=== PATIENT | female | born 2000 | race Caucasian/White ===

== ENCOUNTER → 2021-04-01 19:53 | Outpatient (CLI) | payer OTHER, SELFPAY | PROVIDERS: Visit Provider Nurse Practitioner Family | DX: Z20.822 Contact with and (suspected) exposure to COVID-19 (principal); J02.9 Acute pharyngitis, unspecified | CPT/HCPCS: C9803; U0003; U0005 ==

== ENCOUNTER 2021-04-28 13:56 | Emergency (ER) | payer OTHER, SELFPAY ==
--- NOTE | 2021-04-28 14:11 | XR_ITS ---
FINAL REPORT CLINICAL HISTORY: fall, slipped on ice, fell onto left side of body. shielded. FINDINGS: LEFT SHOULDER 3 views demonstrate no acute fracture or dislocation. The joint spaces appear normal. The visualized bony structures are well aligned. No soft tissue abnormality is seen. IMPRESSION: No acute process. Reviewed, Interpreted and Dictated by Joe Morales III, MD Transcribed by Ruben Campbell Authenticated by Joe Morales III, MD on 04/28/2021 03:44:[address] [facility]
--- NOTE | 2021-04-28 14:11 | XR_ITS ---
FINAL REPORT CLINICAL HISTORY: fall, slipped on ice and fell onto left side of body. shielded. FINDINGS: CERVICAL SPINE Five views were obtained. There is no acute fracture. There is mild kyphosis centered at C4-C5. There is no malalignment. The disc spaces are maintained. IMPRESSION: No acute process. Reviewed, Interpreted and Dictated by Joe Morales III, MD Transcribed by Ruben Campbell Authenticated by Joe Morales III, MD on 04/28/2021 03:44:[address] [facility]
--- NOTE | 2021-04-28 14:11 | XR_ITS ---
FINAL REPORT CLINICAL HISTORY: fall, slipped on ice and fell onto left side of body. shielded. FINDINGS: LEFT ELBOW 3 views were obtained. The lateral view is rotated. There is no acute fracture or dislocation. The joint spaces are intact. There is no soft tissue abnormality. IMPRESSION: Rotated lateral view. No acute process. Reviewed, Interpreted and Dictated by Joe Morales III, MD Transcribed by Ruben Campbell Authenticated by Joe Morales III, MD on 04/28/2021 03:44:12 PM [facility]
--- NOTE | 2021-04-28 14:11 | XR_ITS ---
FINAL REPORT CLINICAL HISTORY: fall on ice, landed on left side of body. shielded. FINDINGS: 2 views of the left humerus were obtained. There is no acute fracture or dislocation. The joint spaces appear intact. There is a linear foreign body in the anterior upper arm. IMPRESSION: No acute process. Reviewed, Interpreted and Dictated by Joe Morales III, MD Transcribed by Ruben Campbell Authenticated by Joe Morales III, MD on 04/28/2021 03:44:05 PM [facility]
--- NOTE | 2021-04-28 14:26 | HMH.EDUTC ---
[facility] [place] Clinical Impression: Neck pain Fall Qualifiers: Encounter type: initial encounter Qualified Code(s): W19.XXXA - Unspecified fall, initial encounter Left shoulder pain Qualifiers: Chronicity: acute Qualified Code(s): M25.512 - Pain in left shoulder Thoracic back pain Qualifiers: Chronicity: acute Back pain laterality: midline Qualified Code(s): M54.6 - Pain in thoracic spine Disposition: Home, Self-Care Condition on Discharge: Good Instructions: DI for Neck Pain, DI for Shoulder Pain Additional Instructions: Rest the extremity, apply ice for 15 minutes as tolerated three or four times per day, Elevate the extremity as tolerated while you are resting. Take ibuprofen for pain. I sent in a prescription to your pharmacy. Follow up with Dr. Maki (orthopedics) for contiued problems. Sometimes there can be fractures that don't show up well on the first set of x-rays. So, you should follow up if you continue to have symptoms. I put in a referral but you need to call his office and schedule an appointment. Follow up with your regular doctor. GO TO THE ER FOR ANY WORSENING SYMPTOMS Go home and rest. It would be best if you rested tomorrow too. No heavy lifting. No twisting. The muscle relaxer (cyclobenzaprine--Flexeril) will make you drowsy, so don't drive or operate heavy machinery after taking it. GO TO THE ER FOR ANY WORSENING SYMPTOMS OR CONCERN, ESPECIALLY BOWEL OR BLADDER ISSUES, SADDLE AREA NUMBNESS, FEVER, ETC Prescriptions: Ibuprofen [Ibuprofen 600mg Tablet] 600 mg PO Q6HP PRN #30 tab PRN Reason: Mild Pain Transmission Status: Pending to [facility] Cyclobenzaprine HCl [Cyclobenzaprine 10mg Tab] 10 mg PO BIDP PRN #20 tab PRN Reason: Muscle Spasm Transmission Status: Pending to [facility] Referrals: Provider,MD Ishmael [Primary Care Provider] - Jamar Maki MD [Staff Physician] - Forms: Work/School Release Time of Disposition: 15:25 Medical Decision Making - Medical Records Medical records reviewed: No: I reviewed the patient's medical records. - Paolo Inquiry Pt receiving controlled substance: No Vital Signs: 04/28/21 14:32 Pulse Rate [Left] 91 H Respiratory Rate 16 Blood Pressure [Right Arm] 147/82 H Blood Pressure Mean [Right Arm] 103 02 Sat by Pulse Oximetry 100 Orders (Tests/Meds): ORDERS Category Date Time Status XR cervical spine 4V Stat Exams 04/28/21 14:11 Taken XR elbow LT min 3V Stat Exams 04/28/21 14:11 Taken XR humerus LT Stat Exams 04/28/21 14:11 Taken XR shoulder LT min 2V Stat Exams 04/28/21 14:11 Taken - Radiology Data #1 Image(s): C-Spine Image Reviewed: Yes I reviewed the patient's radiology image, Yes I have reviewed radiologist's interpretation Preliminary Findings: No Fracture Seen #2 Image(s): Shoulder Image Reviewed: Yes I reviewed the patient's radiology image, Yes I have reviewed radiologist's interpretation Preliminary Findings: No Fracture Seen #3 Image(s): Elbow Image Reviewed: Yes I reviewed the patient's radiology image, Yes I have reviewed radiologist's interpretation Preliminary Findings: No Fracture Seen [facility] [place] HPI - General Stated complaint: O/A 28 @ 1230, L shoulder pain Time Seen by Provider: 04/28/21 14:26 - History of Present Illness Provider Complaint: She states that she fell at around 1230 today. She came down on her left shoulder. She c/o left shoulder pain that radiates to her middle back and the base of her her posterior neck. - Related Data Home Medications Medication Instructions Recorded Confirmed etonogestrel 68 mg subdermal SUBDERMAL 02/24/21 04/14/21 implant Previous Rx's Medication Instructions Recorded amoxicillin 500 mg capsule 500 mg PO Q12H 10 Days #20 cap 04/01/21 metronidazole 375 mg capsule 500 mg PO BID #10 cap 04/14/21 Cyclobenzaprine HCl 10 mg PO BIDP PRN #20 tab 04/28/21 [Cyclobenzaprine 1
[2021-04-28 14:32] VITALS: BP 147/82; PULSE 91; RESP 16; O2SAT 100; BMI 42.7
[2021-04-28 15:35] VITALS: BP 147/82; PULSE 91; RESP 16; TEMP 36.6
== END 2021-04-28 15:37 | disposition home or self-care (01) ==
PROVIDERS: Emergency Provider Nurse Practitioner Family
DX: M54.2 Cervicalgia (principal); M25.512 Pain in left shoulder; M54.6 Pain in thoracic spine; W00.0XXA Fall on same level due to ice and snow, initial encounter; Y92.9 Unspecified place or not applicable
CPT/HCPCS: 72050; 73030; 73060; 73080; 99202; G0463

== ENCOUNTER 2021-06-18 18:20 | Emergency (ER) | payer OTHER, SELFPAY ==
--- NOTE | 2021-06-18 18:49 | HMH.EDUTC ---
[facility] [place] Disposition Clinical Impression: Viral syndrome Disposition: Home, Self-Care Condition on Discharge: Good Instructions: DI for Viral Syndrome Additional Instructions: Drink plenty of fluids. Take tylenol or ibuprofen for pain or fever. Take the medications as directed. Follow up with your regular doctor. GO TO THE ER FOR ANY WORSENING SYMPTOMS Prescriptions: Brompheniramine/Pseudoephed/Dm [Bromfed Dm Cough Syrup] 5 ml PO Q6HP PRN #240 ml PRN Reason: Cough Transmission Status: Pending to [facility] Ondansetron [Zofran 4mg ODT] 4 mg PO Q8HP PRN #20 tab PRN Reason: Nausea Transmission Status: Pending to [facility] Referrals: Provider,Referral, [Primary Care Provider] - Forms: Work/School Release Time of Disposition: 19:48 Medical Decision Making - Medical Records Medical records reviewed: No: I reviewed the patient's medical records. - Paolo Inquiry Pt receiving controlled substance: No Vital Signs: 06/18/21 18:51 Temperature 98.8 F Temperature Source Oral Pulse Rate [Right Radial] 100 H Respiratory Rate 14 Blood Pressure [Right Arm] 151/76 H Blood Pressure Mean [Right Arm] 101 Blood Pressure Source [Right Arm] Automatic Cuff Blood Pressure Position [Right Arm] Sitting 02 Sat by Pulse Oximetry 98 Oxygen Delivery Method Room Air - Lab Data Lab results reviewed: Yes: I reviewed the patient's lab results. [facility] [place] HPI - General Stated complaint: stomach and [place] Time Seen by Provider: 06/18/21 18:49 - History of Present Illness Provider Complaint: She states that she has felt bad since Tuesday (3 days). She has been having headaches, low grade fever, n/v/d, and a cough. She is feeling better, but today she has vomited X2 so she wanted to be rechecked. She needs a release to go back to work once she is better also. - Related Data Home Medications Medication Instructions Recorded Confirmed etonogestrel 68 mg subdermal SUBDERMAL 02/24/21 06/18/21 implant Previous Rx's Medication Instructions Recorded Cyclobenzaprine HCl 10 mg PO BIDP PRN #20 tab 04/28/21 [Cyclobenzaprine 10mg Tab] Ibuprofen [Ibuprofen 600mg 600 mg PO Q6HP PRN #30 tab 04/28/21 Tablet] Brompheniramine/Pseudoephed/Dm 5 ml PO Q6HP PRN #240 ml 06/18/21 [Bromfed Dm Cough Syrup] Ondansetron [Zofran 4mg ODT] 4 mg PO Q8HP PRN #20 tab 06/18/21 Allergies Allergy/AdvReac Type Severity Reaction Status Date / Time No Known Allergies Allergy Verified 06/18/21 13:59 [facility] History - Hepatitis A Screen Attestation statement:: This patient has been screened for Hepatitis A risk factors. Medical History: Denies:: Diabetes Mellitus Type 1, Diabetes Mellitus Type 2 Other Medical History: Reports: Other Laterality Cases: Bilateral: Tonsillectomy Other Surgeries: Yes: Appendectomy Amputation: No Fractures: Yes - Social History Smoking Status: Never smoker Alcohol Intake: never Substance Use Type: denies use Occupational Status: employed Housing: house Household Members: family Family Hx:: Cancer, Diabetes ROS Obtained: Yes All systems reviewed & no additional complaints - Constitutional Constitutional: Reports as per HPI - Eyes Eyes: Denies eye discharge - ENT Ears, Nose, Mouth, and Throat: Reports as per HPI - Cardiovascular Cardiovascular: Denies chest pain - Respiratory Respiratory: Denies chest congestion, Reports cough, Denies dyspnea, Denies stridor, Denies wheezing - Gastrointestinal Gastrointestingal: Reports: as per HPI Physical Exam - General General appearance: alert, in no apparent distress - Head Head exam: atraumatic, normocephalic, normal inspection - Eye Eye exam: Present: normal appearance, PERRL, EOMI - ENT ENT exam: Present: normal exam, normal oropharynx, mucous membranes moist, TM's normal bilaterally, normal external ear exam - Neck Neck exam: Present: normal inspection, full ROM, trachea midline
[2021-06-18 18:51] VITALS: BP 151/76; PULSE 100; RESP 14; TEMP 37.1; O2SAT 98; BMI 43.0
[2021-06-18 19:50] VITALS: BP 151/76; PULSE 100; RESP 14; TEMP 37.1; O2SAT 98
== END 2021-06-18 19:50 | disposition home or self-care (01) ==
PROVIDERS: Emergency Provider Nurse Practitioner Family
DX: B34.9 Viral infection, unspecified (principal)
CPT/HCPCS: 99212; G0463

== ENCOUNTER 2021-12-02 14:55 | Emergency (ER) | payer OTHER, SELFPAY ==
[2021-12-02 15:12] VITALS: BP 142/86; PULSE 98; RESP 16; TEMP 37.1; O2SAT 96; BMI 43.5
--- NOTE | 2021-12-02 15:15 | EXP.UTC ---
Discharge Plan Disposition Patient Disposition: Home, Self-Care Condition: Good Prescriptions Prescriptions: New amoxicillin [amoxicillin] 875 mg tablet 875 mg PO Q12H Qty: 20 0RF kepttkkzrpzpskf-ekommaxxu-OP [Bromfed DM] 2-30-10 mg/5 mL Syrup 5 ml PO Q6H PRN (Reason: Cough) Qty: 240 0RF prednisone 10 mg tablet 10 mg PO BID Qty: 8 0RF No Action Nexplanon 68 mg implant SUBDERMAL cyclobenzaprine 10 MG tablet 10 mg PO BIDP PRN (Reason: Muscle Spasm) Qty: 20 0RF ibuprofen 600 MG tablet 600 mg PO Q6HP PRN (Reason: Mild Pain) Qty: 30 0RF fsdaedzufpxhmbv-jinqfamco-HV 118 ML syrup 5 ml PO Q6HP PRN (Reason: Cough) Qty: 240 0RF ondansetron 4 MG tablet,disintegrating 4 mg PO Q8HP PRN (Reason: Nausea) Qty: 20 0RF Referrals Follow up/Referrals: Provider,Referral, MD [Primary Care Provider] - See instructions Activity Restrictions/Add. Instructions Additional Instructions/Restrictions: Drink plenty of fluids. Take tylenol or ibuprofen for pain or fever. Take the medications as directed. Follow up with your regular doctor. GO TO THE ER FOR ANY WORSENING SYMPTOMS Quarantine until you know the results of your covid-19 test. Notify your school or workplace of your results and follow their instructions regarding return to work/school. Clinical Impressions Clinical Impression: Pharyngitis Stand Alone Forms Stand Alone Forms: Work/School Release Instructions Patient Instructions: DI for Pharyngitis/Tonsillopharyngitis -- Adult, Preventing the Spread of Coronavirus Discharge Instructions Discharge ED Provider: Domingo Rodriguez [facility] General Stated complaint: sore throat Time Seen by Provider: 12/02/21 15:15 History of Present Illness Provider Complaint: She states that she has had a sore throat for the past 3 days. Related Data Home Medications Medication Instructions Recorded Confirmed etonogestrel 68 mg subdermal subdermal 02/24/21 06/18/21 implant (Nexplanon) Previous Rx's Medication Instructions Recorded cyclobenzaprine 10 mg tablet 10 mg PO BIDP PRN Muscle Spasm #20 04/28/21 tabs ibuprofen 600 mg tablet 600 mg PO Q6HP PRN Mild Pain #30 04/28/21 tabs prdzrrstkwbvber-flhgyypdzgzvxqz-GS 5 ml PO Q6HP PRN Cough #240 mL 06/18/21 2 mg-30 mg-10 mg/5 mL oral syrup ondansetron 4 mg disintegrating 4 mg PO Q8HP PRN Nausea #20 tabs 06/18/21 tablet amoxicillin 875 mg tablet 875 mg PO Q12H #20 tabs 12/02/21 qcurtcayvvnbtyv-owzssumxnxinawo-CZ 5 ml PO Q6H PRN Cough #240 mL 12/02/21 2 mg-30 mg-10 mg/5 mL oral syrup (Bromfed DM) prednisone 10 mg tablet 10 mg PO BID #8 tabs 12/02/21 Allergies Allergy/AdvReac Type Severity Reaction Status Date / Time No Known Allergies Allergy Verified 06/18/21 13:59 PFSH PFSH Social History Smoking Status: Never smoker alcohol intake: never substance use type: denies use current occupational status: employed Travel in the last 8 weeks: None household members: family housing: house ROS Obtained: Yes All systems reviewed & no additional complaints except as documented Constitutional Constitutional: Reports chills and Reports fever(s) Eyes Eyes: Denies eye discharge ENT Ears, Nose, Mouth, and Throat: Reports as per HPI Cardiovascular Cardiovascular: Denies chest pain Respiratory Respiratory: Denies chest congestion and Reports cough Gastrointestinal Gastrointestingal: Reports nausea; Denies abdominal pain, constipation, cramping, diarrhea or vomiting Musculoskeletal Musculoskeletal: Denies arthralgias Integumentary/Breasts Skin/Breast: Denies rash Neurologic Neurologic: Denies paresthesias Physical Exam General General appearance: alert and in no apparent distress Head Head exam: atraumatic, normocephalic and normal inspection Eye Eye exam: Present normal appearance, PERRL and EOMI ENT ENT exam: Present mucous mem
[2021-12-02 15:17] LABS: UTC Strep Screen (Rapid) Negative (Negative)
[2021-12-02 15:56] VITALS: BP 142/86; PULSE 98; RESP 16; TEMP 37.1
== END 2021-12-02 16:04 | disposition home or self-care (01) ==
PROVIDERS: Emergency Provider Nurse Practitioner Family
DX: J02.0 Streptococcal pharyngitis (principal)
CPT/HCPCS: 87880; 99212; C9803; G0463; U0003; U0005

== ENCOUNTER 2022-01-08 18:42 | Emergency (ER) | payer OTHER, SELFPAY ==
--- NOTE | 2022-01-08 18:49 | EXP.UTC ---
Discharge Plan Disposition Patient Disposition: Home, Self-Care Condition: Good Prescriptions Prescriptions: New prednisone [prednisone] 20 mg tablet 20 mg PO BID 5 Days Qty: 10 0RF pseudoephedrine HCl [12 Hour Decongestant] 120 mg Tablet Extended Release 120 mg PO Q12H Qty: 20 0RF cefdinir [cefdinir] 300 mg capsule 300 mg PO BID 10 Days Qty: 20 0RF No Action Nexplanon 68 mg implant SUBDERMAL amoxicillin [amoxicillin] 875 mg tablet 875 mg PO Q12H Qty: 20 0RF krgkknsymjbbcap-pfmdhxopf-FJ [Bromfed DM] 2-30-10 mg/5 mL Syrup 5 ml PO Q6H PRN (Reason: Cough) Qty: 240 0RF prednisone 10 mg tablet 10 mg PO BID Qty: 8 0RF cyclobenzaprine 10 MG tablet 10 mg PO BIDP PRN (Reason: Muscle Spasm) Qty: 20 0RF ibuprofen 600 MG tablet 600 mg PO Q6HP PRN (Reason: Mild Pain) Qty: 30 0RF wvulxruwjtnwlwo-egtwywdyu-PT 118 ML syrup 5 ml PO Q6HP PRN (Reason: Cough) Qty: 240 0RF ondansetron 4 MG tablet,disintegrating 4 mg PO Q8HP PRN (Reason: Nausea) Qty: 20 0RF Referrals Follow up/Referrals: Provider,Referral, MD [Primary Care Provider] - See instructions Clinical Impressions Clinical Impression: Otitis media Instructions Patient Instructions: DI for Otitis Media (Middle Ear Infection)-Child Discharge ED Provider: Pilar Craig [facility] [place] General Stated complaint: right ear ache, cough, edward Time Seen by Provider: 01/08/22 19:18 Description of Symptoms (Recalled from Triage Doc. by RN): Right ear pain, cough, congestion, sore throat. Has been feeling poorly for a month or so. Initially treated for strep. Has never really felt any better. History of Present Illness Provider Complaint: Right ear pain, cough, congestion, sore throat. Has been feeling poorly for a month or so. Initially treated for strep. Has never really felt any better. Onset (ago): month(s) (1) Relieving factors: none Exacerbating factors: none Associated symptoms: denies other symptoms Treatments prior to arrival: none Related Data Home Medications Medication Instructions Recorded Confirmed etonogestrel 68 mg subdermal subdermal 02/24/21 06/18/21 implant (Nexplanon) Previous Rx's Medication Instructions Recorded cyclobenzaprine 10 mg tablet 10 mg PO BIDP PRN Muscle Spasm #20 04/28/21 tabs ibuprofen 600 mg tablet 600 mg PO Q6HP PRN Mild Pain #30 04/28/21 tabs akimidjzmqucctp-ucoitcxbfvlpuhl-IE 5 ml PO Q6HP PRN Cough #240 mL 06/18/21 2 mg-30 mg-10 mg/5 mL oral syrup ondansetron 4 mg disintegrating 4 mg PO Q8HP PRN Nausea #20 tabs 06/18/21 tablet amoxicillin 875 mg tablet 875 mg PO Q12H #20 tabs 12/02/21 ryubnxuntsirnvv-pgyybzikllqliet-ZT 5 ml PO Q6H PRN Cough #240 mL 12/02/21 2 mg-30 mg-10 mg/5 mL oral syrup (Bromfed DM) prednisone 10 mg tablet 10 mg PO BID #8 tabs 12/02/21 cefdinir 300 mg capsule 300 mg PO BID 10 days #20 caps 01/08/22 prednisone 20 mg tablet 20 mg PO BID 5 days #10 tabs 01/08/22 pseudoephedrine HCl 120 mg 120 mg PO Q12H #20 tabs 01/08/22 tablet,extended release (12 Hour Decongestant ER) Allergies Allergy/AdvReac Type Severity Reaction Status Date / Time No Known Allergies Allergy Verified 06/18/21 13:59 PFSH PFSH Social History Smoking Status: Never smoker alcohol intake: never substance use type: denies use current occupational status: employed Travel in the last 8 weeks: None household members: family housing: house ROS Obtained: Yes All systems reviewed & no additional complaints except as documented Constitutional Constitutional: Denies fever(s) and Reports malaise ENT Ears, Nose, Mouth, and Throat: Reports otalgia, Reports nasal congestion, Reports sinus pain and Reports sore throat Respiratory Respiratory: Reports chest congestion and Reports cough Physical Exam General General appearance: alert and in no apparent distress Head Head exam: normoc
[2022-01-08 19:11] VITALS: BP 126/85; PULSE 91; RESP 18; TEMP 37.1; O2SAT 99; BMI 43.6
[2022-01-08 19:35] VITALS: BP 126/85; PULSE 91; RESP 18; TEMP 37.1; O2SAT 99
== END 2022-01-08 19:49 | disposition home or self-care (01) ==
PROVIDERS: Emergency Provider Physician Assistant
DX: H66.90 Otitis media, unspecified, unspecified ear (principal)
CPT/HCPCS: 99212; G0463

== ENCOUNTER 2022-12-17 10:55 | Emergency (ER) | payer BC, SELFPAY ==
[2022-12-17 11:15] VITALS: BP 141/90; PULSE 98; RESP 17; TEMP 37.1; O2SAT 99; BMI 42.0
--- NOTE | 2022-12-17 11:40 | EXP.UTC ---
Discharge Plan Disposition Patient Disposition: Home, Self-Care Condition: Good Prescriptions Prescriptions: No Action Nexplanon 68 mg implant 1 implant SUBDERMAL ONCE Referrals Follow up/Referrals: Provider,Referral, MD [Primary Care Provider] - See instructions Activity Restrictions/Add. Instructions Additional Instructions/Restrictions: *Monitor Temp, Over the counter Motrin or Tylenol as directed/as needed Tylenol every 4 hours and Motrin every 6 hours (as long as your family doctor has told you that you can take it) for fever or pain. and straight to ER if unable to lower temp less than 101.0 after medication given *Warm salt water gargles may help to soothe the throat *Throat Lozenges? *Warm fluids like tea with honey may help to soothe the throat? *Sleep elevated *Humidifier/Vaporizer *Flonase 2 sprays in each nostril daily but be aware that it may take 2-3 days before you notice improvement *Bromfed may cause drowsiness. Know how it effects you (your child) before driving, caring for small child, or sending your child to school. Not other antihistamines/allergy medications while taking bromfed Your throat swab was sent for culture. Those results are typically sent to your primary care. Be sure to follow up in 2-3 days with your family doctor/primary care physician if no improvement so they can review those result and treat if necessary. If you don?t have a primary care doctor, I recommend you get one but in the mean time, you will have to return to a walk in clinic Follow up IMMEDIATELY for new or worsening symptoms or no Noticeable improvement over the next 48-72 hours. 911 for difficulty breathing or swallowing You were tested for today for COVID19 your test result should be back in the next 24 hours, you may check your results on the [facility] Portal Clinical Impressions Clinical Impression: Viral syndrome Stand Alone Forms Stand Alone Forms: Work/School Release Instructions Patient Instructions: DI for COVID-19 (Suspected or Confirmed ) Discharge ED Provider: Mirna Spann [facility] HPI General Stated complaint: covid+, sore throat, congestion Mode of Arrival: Ambulatory Source of Information: Patient Limitations: No Limitations Time Seen by Provider: 12/17/22 11:40 Description of Symptoms (Recalled from Triage Doc. by RN): PATIENT REQUESTING COVID TEST D/T EXPOSURE. REPORTS A POSITIVE AT HOME COVID TEST HEENT Symptoms (Recalled from RN notes): No Resp Symptoms (Recalled from RN notes): No Skin Symptoms (Recalled from RN notes): No MS Symptoms (Recalled from RN notes): No Functional Status (Recalled from RN notes): WNL History of Present Illness Provider Complaint: Patient states that she was around several people earlier in the week that tested positive for COVID and now she is having symptoms and had a positive home test so she came in to get checked and tested for COVID Related Data Home Medications Medication Instructions Recorded Confirmed etonogestrel 68 mg subdermal 1 implant subdermal ONCE 02/24/21 12/17/22 implant (Nexplanon) Control Allergies Allergy/AdvReac Type Severity Reaction Status Date / Time No Known Allergies Allergy Verified 06/18/21 13:59 Worker's Comp Is this a Worker's Comp case?: No [facility] Disclaimer: The information contained in this section may have been updated after the patient was seen, as this information can be updated by other users. Social History Smoking Status: Never smoker alcohol intake: never substance use type: denies use current occupational status: employed Travel in the last 8 weeks: None household members: family housing: house ROS Obtained: Yes All systems reviewed & no additional complaints except as documented and Yes Systems reviewed as appropriate & no additional complaints except as documented Constit
[2022-12-17 11:53] VITALS: BP 141/90; PULSE 98; RESP 17; TEMP 37.1; O2SAT 99
== END 2022-12-17 11:55 | disposition home or self-care (01) ==
PROVIDERS: Emergency Provider Nurse Practitioner
DX: U07.1 COVID-19 (principal)
CPT/HCPCS: 87635; 99212; 99213; G0463

== ENCOUNTER 2023-04-28 17:38 | Emergency (ER) | payer BC, SELFPAY ==
[2023-04-28 18:30] VITALS: BP 131/81; PULSE 93; RESP 18; TEMP 37.5; O2SAT 99; BMI 44.5
[2023-04-28 18:31] LABS: UTC Influenza A Antigen Negative (Negative); UTC Influenza B Antigen Negative (Negative); UTC Strep Screen (Rapid) Negative (Negative)
--- NOTE | 2023-04-28 18:47 | ED_ITS ---
Discharge Plan Disposition Patient Disposition: Home, Self-Care Condition: Good Prescriptions Prescriptions: New amoxicillin 875 mg tablet 875 mg PO Q12H Qty: 20 0RF methylprednisolone [Medrol (Pradip)] 4 mg tablets,dose pack See Rx Instructions .Route .COMPLEX 6 Days Qty: 21 0RF Rx Instructions: taper pack; No Action Nexplanon 68 mg implant 1 implant SUBDERMAL ONCE Referrals Follow up/Referrals: Provider,Referral, MD [Primary Care Provider] - See instructions Activity Restrictions/Add. Instructions Additional Instructions/Restrictions: *Monitor Temp, Over the counter Motrin or Tylenol as directed/as needed Tylenol every 4 hours and Motrin every 6 hours (as long as your family doctor has told you that you can take it) for fever or pain. and straight to ER if unable to lower temp less than 101.0 after medication given *Warm salt water gargles may help to soothe the throat *Throat Lozenges? *Warm fluids like tea with honey may help to soothe the throat? *Sleep elevated *Humidifier/Vaporizer Take medication as prescribed Your throat swab was sent for culture. Those results are typically sent to your primary care. Be sure to follow up in 2-3 days with your family doctor/primary care physician if no improvement so they can review those result and treat if necessary. If you don?t have a primary care doctor, I recommend you get one but in the mean time, you will have to return to a walk in clinic Follow up IMMEDIATELY for new or worsening symptoms or no Noticeable improvement over the next 48-72 hours. 911 for difficulty breathing or swallowing Clinical Impressions Clinical Impression: Otitis media Qualifiers: Otitis media type: unspecified Laterality: bilateral Qualified Code(s): H66.93 - Otitis media, unspecified, bilateral Instructions Patient Instructions: Middle Ear Infection, Amoxicillin Discharge ED Provider: Mirna Spann [facility] [place] General Stated complaint: sore throat, cough, painful breathing, ear pain Mode of Arrival: Ambulatory Source of Information: Patient Limitations: No Limitations Time Seen by Provider: 04/28/23 18:47 Description of Symptoms (Recalled from Triage Doc. by RN): Pt's symptoms are sore throat, coughing, congestion, ear pain, and body aches. HEENT Symptoms (Recalled from RN notes): Yes Resp Symptoms (Recalled from RN notes): No Skin Symptoms (Recalled from RN notes): No MS Symptoms (Recalled from RN notes): No Functional Status (Recalled from RN notes): n/a History of Present Illness Provider Complaint: Patient states that she has been having bilateral ear pain, sore throat, nasal congestion, body aches, and cough States that her throat is killing her and hurts when she swallows she has pain shoot into her ears Related Data Home Medications Medication Instructions Recorded Confirmed etonogestrel 68 mg subdermal 1 implant subdermal ONCE 02/24/21 04/28/23 implant (Nexplanon) Control Previous Rx's Medication Instructions Recorded amoxicillin 875 mg tablet 875 mg PO Q12H #20 tabs 04/28/23 methylprednisolone 4 mg tablets in See Rx Instructions .Route 04/28/23 a dose pack (Medrol (Pradip)) .COMPLEX 6 days #21 tabs Allergies Allergy/AdvReac Type Severity Reaction Status Date / Time No Known Allergies Allergy Verified 04/28/23 18:44 Worker's Comp Is this a Worker's Comp case?: No [facility] Disclaimer: The information contained in this section may have been updated after the patient was seen, as this information can be updated by other users. Social History Smoking Status: Never smoker alcohol intake: never substance use type: denies use current occupational status: employed Travel in the last 8 weeks: None household members: family housing: house ROS Obtained: Yes All systems reviewed & no additional complaints except as documented and Yes Systems reviewed as appropriate & no additional complaints except as documented Constitutional Constitutional: Reports system reviewed and no additional complaints, except as documented, Reports as per HPI, Reports body ache and Reports headache(s) ENT Ears, Nose, Mouth, and Throat: Reports system reviewed and no additional complaints, except as documented, Reports as per HPI, Reports otalgia, Reports headache(s), Reports nasal congestion, Reports sinus pressure and Reports sore throat Cardiovascular Cardiovascular: Reports system reviewed and no additional complaints, except as documented and Reports as per HPI Respiratory Respiratory: Reports system reviewed and no additional complaints, except as documented, Reports as per HPI, Denies shortness of breath and Reports cough Gastrointestinal Gastrointestingal: Reports system reviewed and no additional complaints, except as documented and as per HPI Neurologic Neurologic: Reports headache(s) Physical Exam General General appearance: alert and in no apparent distress ENT ENT exam: Present mucous membranes moist Expanded ENT Exam TM/Canal exam: Bilateral TM: erythema and bulging Nose exam: Present sinus tenderness Throat exam: Present tonsillar erythema Respiratory Respiratory exam: Present normal lung sounds bilaterally; Absent respiratory distress or wheezes Cardiovascular Cardiovascular exam: Present regular rate, normal rhythm and normal heart sounds Neurological Exam Neurological exam: Present alert, oriented X3 and normal gait Medical Decision Making Paolo Inquiry Pt receiving controlled substance: No Paolo was queried for this patient: No Vital Signs: 04/28/23 18:30 Temperature 99.5 F Temperature Source Oral Pulse Rate [Right Radial] 93 H Respiratory Rate 18 Blood Pressure [Right Arm] 131/81 Blood Pressure Mean [Right Arm] 97 Blood Pressure Source [Right Arm] Automatic Cuff Blood Pressure Position [Right Arm] Sitting 02 Sat by Pulse Oximetry 99 Oxygen Delivery Method Room Air Lab Data Lab results reviewed: Yes I reviewed the patient's lab results. Lab Results 04/28/23 18:14: Influenza Type A Ag Negative, Influenza Type B Ag Negative, Strep Scn Rapid Clinic Negative Orders (Tests/Meds): ORDERS Category Date Time Status Strep Screen Confirmation Stat Micro 04/28/23 18:14 Received
[2023-04-28 19:05] VITALS: BP 131/81; PULSE 93; RESP 18; TEMP 37.5; O2SAT 99
== END 2023-04-28 19:05 | disposition home or self-care (01) ==
PROVIDERS: Emergency Provider Nurse Practitioner
DX: H66.93 Otitis media, unspecified, bilateral (principal); R07.0 Pain in throat; R09.81 Nasal congestion; R05.9 Cough, unspecified; M79.18 Myalgia, other site
CPT/HCPCS: 87804; 87880; 99212; 99214; G0463

== ENCOUNTER 2023-08-04 03:34 | Emergency (ER) | payer BC, SELFPAY ==
[2023-08-04 03:47] VITALS: BP 141/97; PULSE 107; RESP 16; TEMP 37.3; O2SAT 97; BMI 43.4
--- NOTE | 2023-08-04 03:48 | XR_ITS ---
FINAL REPORT CLINICAL HISTORY: nausea vomiting FINDINGS: A single portable view of the chest was obtained. The heart size and pulmonary vascularity are within normal limits. The mediastinum is within normal limits. No acute pulmonary abnormality is identified. The bony thorax is intact. IMPRESSION: No active cardiopulmonary disease. Reviewed, Interpreted and Dictated by Joe Morales III, MD Transcribed by Erinn Schaffer Authenticated and [facility]
[2023-08-04] MEDS: ONDANSETRON 4MG/2ML VIAL 4 MG IV ×2 (03:56→05:49)
[2023-08-04] MEDS: ACETAMINOPHEN 1,000MG/100ML VIAL 1000 MG IV (03:56)
[2023-08-04 03:57] LABS: Basophils # 0.1 K/mm3 (0-0.2); Basophils % 0.4 % (0.1-2.0); Eosinophils # 0.2 K/mm3 (0.0-0.4); Eosinophils % 1.3 % (0.1-12.0); Hematocrit 48.7 % (37.0-47.0); Lymphocytes # 1.1 K/mm3 (0.7-4.5); Mean Corpuscular HGB Conc 32.9 g/dL (31.8-35.4); Mean Corpuscular Hemoglobin 30.7 pg (27.0-31.2); Mean Corpuscular Volume 93.3 fl (81-99); Mean Platelet Volume 9.3 fl (7.4-10.4); Monocytes # 0.5 K/mm3 (0.1-1.0); Monocytes % 3.1 % (1.7-9.3); Neutrophils # 15.3 K/mm3 (1.8-7.8); Neutrophils % 89.1 % (37.0-80.0); Platelet Count 292 K/mm3 (142-424); Red Blood Count 5.22 M/mm3 (4.20-5.40); Red Cell Distribution Width 13.7 % (11.5-17.5); White Blood Count 17.2 K/mm3 (4.8-10.8)
[2023-08-04] MEDS: LACTATED RINGERS 1000ML 1,000 ML 999 ML IV (03:57)
--- NOTE | 2023-08-04 03:58 | HMH.EDGENADL ---
Discharge Plan Disposition Patient Disposition: Home, Self-Care Condition: Good Prescriptions Prescriptions: New ondansetron 4 mg tablet,disintegrating 4 mg PO Q6H PRN (Reason: nausea and vomiting) Qty: 14 0RF No Action Nexplanon 68 mg implant 1 implant SUBDERMAL ONCE amoxicillin 875 mg tablet 875 mg PO Q12H Qty: 20 0RF methylprednisolone [Medrol (Pradip)] 4 mg tablets,dose pack See Rx Instructions .Route .COMPLEX 6 Days Qty: 21 0RF Rx Instructions: taper pack; Referrals Follow up/Referrals: Provider,Referral, MD [Primary Care Provider] - See instructions Activity Restrictions/Add. Instructions Additional Instructions/Restrictions: You were evaluated in the ER. You are appropriate for discharge at this time. Take the prescribed Zofran as needed for nausea and vomiting, drink plenty of fluids. Make an appointment with your primary care physician for reevaluation in 2 to 3 days. Return to the ER with new, worsening, or otherwise concerning symptoms. Clinical Impressions Clinical Impression: Nausea, vomiting and diarrhea Stand Alone Forms Stand Alone Forms: Work/School Release Instructions Patient Instructions: DI for Diarrhea and Traveler's Diarrhea -- Adult, DI for Diarrhea and Traveler's Diarrhea -- Child, DI for Nausea -- Adult, DI for Nausea -- Child Discharge ED Provider: Gio Rush Adult HPI General Chief complaint: Nausea/Vomiting/Diarrhea Stated complaint: vomiting, diarrhea, sweating Time Seen by Provider: 08/04/23 03:46 Mode of Arrival: Family Vehicle Source of Information: Patient Limitations: No Limitations Description of Symptoms (Recalled from ER Triage Doc. by RN): 23 YO FEMALE PRESENTS FOLLOWING ACUTE ONSET OF DIARRHEA APPROX 7 HOURS AGO. hAS SINCE BEGAN VOMITING (AROUND 3.5 HOURS AGO). STATES LAST MEAL WAS YESTERDAY AT NOON ([employer]) AND ATE A FEW CHIPS YESTERDAY EVENING. pATIENT DENIES KNOWN SICK CONTACTS. STATES PAIN IS PRESENT PRIOR TO EACH VOMITING EPISODE. PSH: APPENDECTOMY, PMH: NO ISSUES. NO CURRENT MEDS. HAS NEXPLANON IMPLANTED IN LUE. History of Present Illness HPI narrative: Otherwise healthy 23-year-old female presents to the ER with concerns of acute onset diarrhea. Patient states this started approximately 7 hours ago. Today for lunch over 12 hours ago she ate [employer] burger, chicken nuggets, fries, later in the evening she ate chips, and shortly after that she had acute onset generalized abdominal pain followed by diarrhea. Since that time she began vomiting, approximately 3.5 hours ago. She states she has had episodes of sweating associated with her emesis. She is not having bloody or bilious emesis, diarrhea is nonbloody, nonmelanotic. Patient does have a history of appendectomy. She states she has mild generalized abdominal discomfort, nothing localizing at this time. She has had emesis in the ER since arrival. She denies dysuria or hematuria. No known sick contacts, ROS otherwise negative. Related Data Home Medications Medication Instructions Recorded Confirmed etonogestrel 68 mg subdermal 1 implant subdermal ONCE 02/24/21 04/28/23 implant (Nexplanon) Control Previous Rx's Medication Instructions Recorded amoxicillin 875 mg tablet 875 mg PO Q12H #20 tabs 04/28/23 methylprednisolone 4 mg tablets in See Rx Instructions .Route 04/28/23 a dose pack (Medrol (Pradip)) .COMPLEX 6 days #21 tabs ondansetron 4 mg disintegrating 4 mg PO Q6H PRN nausea and 08/04/23 tablet vomiting #14 tabs Allergies Allergy/AdvReac Type Severity Reaction Status Date / Time No Known Allergies Allergy Verified 04/28/23 18:44 [facility] Disclaimer: The information contained in this section may have been updated after the patient was seen, as this information can be updated by other users. Social History Smoking Status: Unknown if ever smoked alcohol intake: never substance use type: denies use current occupational status: employed Travel in the last 8 weeks: None household members: family housing: house ROS Obtained: Yes All systems reviewed & no additional complaints except as documented Constitutional Constitutional: Reports chills, Denies fever(s), Denies headache(s), Denies weakness and Reports other (Sweats) Eyes Eyes: Denies change in vision ENT Ears, Nose, Mouth, and Throat: Denies dizziness, Denies headache(s), Denies nasal congestion and Denies sore throat Cardiovascular Cardiovascular: Denies chest pain, Denies dyspnea and Denies leg edema Respiratory Respiratory: Denies cough and Denies dyspnea Gastrointestinal Gastrointestingal: Reports abdominal pain, diarrhea, nausea and vomiting; Denies constipation Genitourinary Female Genitourinary: Denies dysuria Musculoskeletal Musculoskeletal: Denies arthralgias, Denies myalgias, Denies numbness and Denies tingling Integumentary/Breasts Skin/Breast: Denies change in pigmentation Neurologic Neurologic: Denies dizziness, Denies headache(s), Denies numbness, Denies tingling and Denies weakness Physical Exam General General appearance: alert and in no apparent distress Head Head exam: atraumatic and normocephalic Eye Eye exam: Present PERRL and EOMI ENT ENT exam: Present mucous membranes moist Neck Neck exam: Present normal inspection and full ROM Chest Chest inspection: Present symmetric chest wall rise Respiratory Respiratory exam: Present normal lung sounds bilaterally; Absent respiratory distress, wheezes or stridor Cardiovascular Cardiovascular exam: Present regular rate and normal rhythm Abdominal Exam Abdominal exam: Present soft and tenderness (Mild diffuse); Absent distention, guarding or rebound Extremities Exam Extremities exam: Present full ROM Neurological Exam Neurological exam: Present alert and oriented X3; Absent motor sensory deficit Psychiatric Psychiatric exam: Present normal affect and normal mood Skin Skin exam: Present warm and dry Medical Decision Making Paolo Inquiry Pt receiving controlled substance: No Vital Signs: 08/04/23 03:47 Temperature 99.2 F Temperature Source Oral Pulse Rate [Right Brachial] 107 H Respiratory Rate 16 Blood Pressure [Right Arm] 141/97 H Blood Pressure Mean [Right Arm] 111 Blood Pressure Source [Right Arm] Automatic Cuff Blood Pressure Position [Right Arm] Sitting 02 Sat by Pulse Oximetry 97 Oxygen Delivery Method Room Air Lab Data Lab Results 08/04/23 03:50: WBC 17.2 H, RBC 5.22, Hgb 16.0, Hct 48.7 H, MCV 93.3, MCH 30.7, MCHC 32.9, RDW 13.7, Plt Count 292, MPV 9.3, Neut % (Auto) 89.1 H, Lymph % (Auto) 6.0 L, [place] % (Auto) 3.1, Eos % (Auto) 1.3, Baso % (Auto) 0.4, Neut # (Auto) 15.3 H, Lymph # (Auto) 1.1, [place] # (Auto) 0.5, Eos # (Auto) 0.2, Baso # (Auto) 0.1, Total Counted 100, Neutrophils % (Manual) 87 H, Lymphocytes % (Manual) 10, Monocytes % (Manual) 3, Platelet Estimate Normal, RBC Morphology Normal, Sodium 138, Potassium 4.3, Chloride 107, Carbon Dioxide 24, Anion Gap 11.3, BUN 13, Creatinine 0.70, Estimated Creat Clear 132, Estimated GFR 105, Est GFR ( Amer) 127, Glucose 126 H, Calcium 9.5, Total Bilirubin 0.7, AST 33, ALT 32, Alkaline Phosphatase 99, Troponin I < 0.01, Total Protein 7.8, Albumin 4.5, Globulin 3.3 H, Albumin/Globulin Ratio 1.4, Lipase 76, Serum HCG, Qual Negative 08/04/23 05:06: Urine Color Yellow, Urine Appearance Slightly cloudy, Urine pH 5.5, Ur Specific [place] >= 1.030, Urine Protein Negative, Urine Glucose (UA) Negative, Urine Ketones Negative, Urine Blood Negative, Urine Nitrate Negative, Urine Bilirubin Negative, Urine Urobilinogen 0.2, Ur Leukocyte Esterase Trace, Urine WBC 3-5, Urine Bacteria 2+, Urine Mucus Trace 08/04/23 05:15: Lactate 1.3 08/04/23 03:50 08/04/23 03:50 Orders (Tests/Meds): ED MEDICATIONS Discontinued Medications Generic Name Dose Route Start Last Admin Trade Name Tori PRN Reason Stop Dose Admin Acetaminophen 1,000 mg 08/04/23 03:47 08/04/23 03:56 Acetaminophen 1,000mg/100ml Vial IV 08/04/23 03:48 1,000 mg ONCE ONE Administration Lactated Ringer's 1,000 mls @ 999 mls/hr 08/04/23 03:47 08/04/23 03:57 Lactated Ringer's 1000 Ml Bag IV 08/04/23 04:47 999 mls/hr .Q1H1M ONE Administration Ketorolac Tromethamine 15 mg 08/04/23 05:34 Ketorolac 30mg/Ml Vial IV 08/04/23 05:35 ONCE ONE Ondansetron HCl 4 mg 08/04/23 03:47 08/04/23 03:56 Ondansetron 4mg/2ml Vial IV 08/04/23 03:48 4 mg ONCE ONE Administration ORDERS Category Date Time Status CXR --portable [XR chest portable] Stat Exams 08/04/23 03:48 Taken CBC w/Auto Diff [Complete Blood Count Auto Diff] Stat Lab 08/04/23 03:50 Completed CMP [Comprehensive Metabolic Panel] Stat Lab 08/04/23 03:50 Completed HCG Qualitative, Serum Stat Lab 08/04/23 03:50 Completed Lactic Acid Stat Lab 08/04/23 05:15 Completed Lipase Stat Lab 08/04/23 03:50 Completed Trop I [Troponin I] Stat Lab 08/04/23 03:50 Completed Troponin I Q3H Lab 08/04/23 07:00 Ordered Troponin I Q3H Lab 08/04/23 10:00 Ordered Urinalysis and Microscopic Stat Lab 08/04/23 05:06 Completed Urine Culture Stat Micro 08/04/23 05:06 Received ECG Request Stat Y 08/04/23 03:47 Ordered HEART Score History (anamnesis): Slightly suspicious ECG: Non-specific disturbance Age: <45 years Risk factors: No known risk factors Troponin: </= normal limit HEART Score: 1 Medical Decision Narrative: In summary, this 23year old female presents to the emergency department today with nausea, vomiting, diarrhea. On initial evaluation patient is hemodynamically stable, tachycardia that was present on arrival is resolved on my exam, she is afebrile, abdomen has diffuse mild tenderness, no rebound or guarding, nonfocal, nonacute abdomen, she appears well-hydrated. Differential diagnosis includes but is not limited to viral syndrome, food borne illness, electrolyte abnormality, dehydration, urinary tract infection, , also considered ACS though this is less likely given patient does not have any chest pain or known cardiac risk factors aside from being overweight. Based on these concerns, I ordered basic labs, cardiac workup, urinalysis. I considered CT scan however given patient is young and otherwise healthy and has nonfocal, nonlocalizing, nonacute abdominal exam at this time I do not believe it is necessary. ECG personally interpreted demonstrates normal sinus rhythm, rate 82, normal axis, normal RI and QTc, no STEMI. Patient received IV fluids, Zofran, IV acetaminophen for treatment. Labs personally reviewed demonstrate leukocytosis with WBC 17.2, left shift, no anemia, CMP with no actionable electrolyte abnormalities, no kidney or liver dysfunction, initial troponin undetectably low at less than 0.01, repeat troponin is not necessary given patient's duration of symptoms, hCG negative. UA negative for findings of infection, lactic normal at 1.3 XR personally interpreted demonstrates no acute intrathoracic abnormality, see radiology read for final interpretation. On reassessment, patient has had improvement of symptoms. She is having much less nausea and has been able to tolerate oral intake in the ER. She is appropriate for discharge at this time. Patient was given instructions on symptomatic management, follow up instructions, and return precautions for the emergency department. Patient indicated understanding and was discharged in stable condition. Critical Care Critical Care Time Critical Care Time: No
[2023-08-04 03:59] LABS: MANUAL DIFFERENTIAL MANUAL DIFFERENTIAL (MANUAL DIFF)
[2023-08-04 04:00] LABS: Chloride 107 mmol/L (98-107); Potassium 4.3 mmoL/L (3.5-5.1); Sodium 138 mmol/L (136-145)
[2023-08-04 04:03] LABS: Alanine Aminotransferase 32 U/L (12-78); Albumin Level 4.5 g/dl (3.5-5.0); Albumin/Globulin Ratio 1.4 (1.1-1.8); Alkaline Phosphatase 99 U/L (38-126); Anion Gap 11.3 mEq/L (5-15); Aspartate Amino Transferase 33 U/L (14-36); Bilirubin,Total 0.7 mg/dl (0.2-1.3); Blood Urea Nitrogen 13 mg/dl (7-17); Calcium 9.5 mg/dl (8.4-10.2); Carbon Dioxide 24 mmol/L (22.0-30.0); Creatinine Clearance Estimated 132 mL/min (50-200); Estimated Glomerular Filt Rate 105 ml/min (>60); GFR (African American) 127 ML/MIN (>60); Globulin 3.3 g/dL (1.3-3.2); Glucose 126 mg/dl (74-100); Lipase 76 U/L (23-300); Total Protein,Serum 7.8 g/dl (6.3-8.2)
[2023-08-04 04:07] LABS: Lymphocytes % 10 % (10-50); Monocytes % 3 % (2-9); Neutrophils % 87 % (42-76); Platelet Estimate Normal; RBC Morphology Normal; Total Cells Counted 100
[2023-08-04 04:09] LABS: HCG Qualitative, Serum Negative (Negative)
[2023-08-04 04:21] LABS: Troponin I < 0.01 ng/ml (0.00-0.034)
--- NOTE | 2023-08-04 04:51 | ECG_ITS ---
APPROVED REPORT Exam: Resting ECG HR:82 bpm ECG Measurements Heart Rate 82 AXES WA 138 P 32 QRSd 80 QRS 63 QT 365 T 12 QTc 404 Conclusion SINUS RHYTHM NORMAL ECG UNCONFIRMED REPORT Electronically signed by : RODERICK MORRISSEY, 08/06/2023 06:03:30
[2023-08-04 05:12] LABS: Appearance,Urine Slightly Cloudy (Clear); Bilirubin,Urine Negative (Negative); Blood, Urine Negative (Negative); Color,Urine YELLOW (Yellow); Glucose,Urine (UA) Negative (Negative); Ketones,Urine Negative (Negative); Leukocyte Esterase,Urine TRACE (Negative); Microscopic, Urine URINE MICROSCOPIC (MICROSCOPIC); Nitrate,Urine Negative (Negative); PH,Urine 5.5 (5.0-8.5); Protein,Urine Negative (Negative); Specific Gravity, Urine >= 1.030 (1.005-1.030); Urobilinogen,Urine 0.2 EU/dl (0.2)
[2023-08-04 05:26] LABS: Bacteria,Urine 2+ /lpf; Mucus,Urine Trace /lpf
[2023-08-04 05:30] LABS: Lactic Acid 1.3 mmol/L (0.7-2.1)
[2023-08-04] MEDS: KETOROLAC 30MG/ML VIAL 15 MG IV (05:45)
[2023-08-04 05:51] VITALS: BP 149/85; PULSE 91; RESP 15; TEMP 37.2; O2SAT 94
[2023-08-04 05:58] VITALS: BP 128/77; PULSE 77; RESP 18; TEMP 36.6; O2SAT 99
== END 2023-08-04 05:54 | disposition home or self-care (01) ==
PROVIDERS: Emergency Provider Emergency Medicine
DX: R11.2 Nausea with vomiting, unspecified; R19.7 Diarrhea, unspecified; R10.817 Generalized abdominal tenderness; B96.89 Other specified bacterial agents as the cause of diseases classified elsewhere
CPT/HCPCS: 71045; 80053; 81001; 83605; 83690; 84484; 84703; 85007; 85025; 87086; 93005; 96361; 96374; 96375; 96376; 99284; J0131; J2405

== ENCOUNTER 2023-10-17 15:08 | Emergency (ER) | payer BC, SELFPAY ==
[2023-10-17 15:30] VITALS: BP 140/91; PULSE 95; RESP 20; TEMP 36.7; O2SAT 100; BMI 51.2
[2023-10-17 16:09] LABS: UTC Strep Screen (Rapid) Negative (Negative)
--- NOTE | 2023-10-17 16:30 | ED_ITS ---
Discharge Plan Disposition Patient Disposition: Home, Self-Care Condition: Good Prescriptions Prescriptions: New amoxicillin 875 mg tablet 875 mg PO BID Qty: 20 0RF methylprednisolone [Medrol (Pradip)] 4 mg tablets,dose pack See Rx Instructions .Route .COMPLEX 6 Days Qty: 21 0RF Rx Instructions: taper pack; fluticasone propionate [Flonase Allergy Relief] 50 mcg/actuation spray,susp ension 1 - 2 spray intranasal DAILY Qty: 16 0RF Rx Instructions: administer into each nostril daily No Action Nexplanon 68 mg implant 1 implant SUBDERMAL ONCE Referrals Follow up/Referrals: Provider,Referral, MD [Primary Care Provider] - See instructions Activity Restrictions/Add. Instructions Additional Instructions/Restrictions: *Monitor Temp, Over the counter Motrin or Tylenol as directed/as needed Tylenol every 4 hours and Motrin every 6 hours (as long as your family doctor has told you that you can take it) for fever or pain. and straight to ER if unable to lower temp less than 101.0 after medication given *Warm salt water gargles may help to soothe the throat *Throat Lozenges? *Warm fluids like tea with honey may help to soothe the throat? *Sleep elevated *Humidifier/Vaporizer *Flonase 2 sprays in each nostril daily but be aware that it may take 2-3 days before you notice improvement Your throat swab was sent for culture. Those results are typically sent to your primary care. Be sure to follow up in 2-3 days with your family doctor/primary care physician if no improvement so they can review those result and treat if necessary. If you don?t have a primary care doctor, I recommend you get one but in the mean time, you will have to return to a walk in clinic Follow up IMMEDIATELY for new or worsening symptoms or no Noticeable improvement over the next 48-72 hours. 911 for difficulty breathing or swallowing Clinical Impressions Clinical Impression: Otitis media Instructions Patient Instructions: Middle Ear Infection, Ear Infections (Alternative Therapy) Print Language Print Language: Setswana Discharge ED Provider: Mirna Spann [facility] [place] General Stated complaint: sore throat Mode of Arrival: Ambulatory Source of Information: Patient Limitations: No Limitations Time Seen by Provider: 10/17/23 16:30 Description of Symptoms (Recalled from Triage Doc. by RN): PATIENT C/O SORE THROAT, EAR PAIN, AND RUNNY NOSE X 3 DAYS HEENT Symptoms (Recalled from RN notes): Yes Resp Symptoms (Recalled from RN notes): No Skin Symptoms (Recalled from RN notes): No MS Symptoms (Recalled from RN notes): No Functional Status (Recalled from RN notes): WNL History of Present Illness Provider Complaint: Patient states that she has been having sore throat, pain in her ears, nasal congestion and runny nose States that today she wasnt feeling any better so she came in to get checked worried that she may have strep States took home COVID test and it was negative Related Data Home Medications ?Medication ?Instructions ?Recorded ?Confirmed etonogestrel 68 mg subdermal 1 implant subdermal ONCE 02/24/21 04/28/23 implant (Nexplanon) Control Previous Rx's ?Medication ?Instructions ?Recorded amoxicillin 875 mg tablet 875 mg PO BID #20 tabs 10/17/23 fluticasone propionate 50 1 - 2 spray intranasal DAILY #16 10/17/23 mcg/actuation nasal grams spray,suspension (Flonase Allergy Relief) methylprednisolone 4 mg tablets in See Rx Instructions .Route 10/17/23 a dose pack (Medrol (Pradip)) .COMPLEX 6 days #21 tabs Allergies Allergy/AdvReac Type Severity Reaction Status Date / Time No Known Allergies Allergy Verified 04/28/23 18:44 Worker's Comp Is this a Worker's Comp case?: [facility]: The information contained in this section may have been updated after the patient was seen, as this information can be updated by other users. Medical History (Updated 10/17/23 @ 16:39 by Mirna Spann APRN) Urinary tract infection Asthma Surgical History (Updated 10/17/23 @ 15:48 by Ailin Woods RN) History of tonsillectomy History of appendectomy Social History Smoking Status: Unknown if ever smoked alcohol intake: never substance use type: denies use current occupational status: employed Travel in the last 8 weeks: None household members: family housing: house ROS Obtained: Yes All systems reviewed & no additional complaints except as documented and Yes Systems reviewed as appropriate & no additional complaints except as documented Constitutional Constitutional: Reports system reviewed and no additional complaints, except as documented, Reports as per HPI and Reports headache(s) ENT Ears, Nose, Mouth, and Throat: Reports system reviewed and no additional complaints, except as documented, Reports as per HPI, Reports otalgia, Reports headache(s), Reports nasal congestion, Reports sinus pressure and Reports sore throat Cardiovascular Cardiovascular: Reports system reviewed and no additional complaints, except as documented and Reports as per HPI Respiratory Respiratory: Reports system reviewed and no additional complaints, except as documented and Reports as per HPI Gastrointestinal Gastrointestingal: Reports system reviewed and no additional complaints, except as documented and as per HPI Neurologic Neurologic: Reports headache(s) Physical Exam General General appearance: alert and in no apparent distress ENT ENT exam: Present mucous membranes moist Expanded ENT Exam TM/Canal exam: Left TM: erythema and bulging Throat exam: Present other (Pharyngeal erythema noted with PND) Respiratory Respiratory exam: Present normal lung sounds bilaterally; Absent respiratory distress or wheezes Cardiovascular Cardiovascular exam: Present regular rate, normal rhythm and normal heart sounds Neurological Exam Neurological exam: Present alert, oriented X3 and normal gait Medical Decision Making Paolo Inquiry Pt receiving controlled substance: No Paolo was queried for this patient: No Vital Signs: 10/17/23 15:30 Temperature 98.0 F Temperature Source Oral Pulse Rate [Left Brachial] 95 H Respiratory Rate 20 Blood Pressure [Left Arm] 140/91 H Blood Pressure Mean [Left Arm] 107 Blood Pressure Source [Left Arm] Automatic Cuff Blood Pressure Position [Left Arm] Sitting 02 Sat by Pulse Oximetry 100 Oxygen Delivery Method Room Air Lab Data Lab results reviewed: Yes I reviewed the patient's lab results. Lab Results 10/17/23 15:49: Strep Scn Rapid Clinic Negative Orders (Tests/Meds): ORDERS Category Date Time Status Strep Screen Confirmation Stat Micro 10/17/23 15:49 Received
[2023-10-17 16:41] VITALS: BP 140/91; PULSE 95; RESP 20; TEMP 36.7; O2SAT 100
== END 2023-10-17 16:43 | disposition home or self-care (01) ==
PROVIDERS: Emergency Provider Nurse Practitioner
DX: H66.92 Otitis media, unspecified, left ear (principal); J02.9 Acute pharyngitis, unspecified; R09.81 Nasal congestion
CPT/HCPCS: 87880; 99212; 99214; G0463